=== PATIENT | female | born 1950 | race Caucasian/White ===

== ENCOUNTER → 2017-07-22 | Outpatient (CLI) | payer MEDICARE ==
--- NOTE | 2017-07-22 12:31 | KCIC ---
CT CHEST WO CONTRAST dated 07/22/2017 12:00 PM Indication: COPD, cough, shortness of air, smoker 50 years Comparison: None Technique: CT imaging was performed of the[chest], multiplanar reconstruction images submitted. One or more of the following individualized dose reduction techniques were utilized for this examination: 1. Automated exposure control 2. Adjustment of the mA and/or kV according to patient size 3. Use of iterative reconstruction technique. Findings: There is moderate centrilobular emphysema with upper zone predominance. There is no abnormal pericardial or pleural fluid, pneumothorax, or infiltrate. Major airways are patent. Thoracic aortic caliber is within normal limits, minimal plaque. No significantly enlarged lymph nodes are identified of the chest. There is mild coronary calcification. There is no significant abnormality of the limited visualized abdominal visceral organs. There is more prominent plaque of the visualized abdominal aorta. There are a couple of adjacent small nodules or nodes along the right major fissure axial image 38, largest 4 mm. There is a small noncalcified right lower lobe nodule on the order of 4 to 5 mm axial image 39 series 2. There is also a noncalcified nodule of the right middle lobe along the right minor fissure up to 7 mm axial images 38. There is a small 2 mm left lower lobe nodule axial image 50. IMPRESSION: 1. There is centrilobular emphysema with upper zone predominance. There are noncalcified, incidental pulmonary nodules as stated, largest 7 mm. As per the revised Fleischner guidelines, 3-6 month follow-up is recommended. Electronically signed by: Sami Garza MD (07/22/2017 12:28 PM) [id number]
--- NOTE | 2017-07-22 15:03 | RAD ---
DATE: 07/22/2017 EXAM: MAMMO ACMPOS SCREENING BILATERAL Bilateral digital screening mammography to include digital breast tomosynthesis (3D mammography) HISTORY: Screening study. COMPARISON: Comparison studies are dated 04/28/2012 and 04/05/2012 This study was interpreted with the benefit of Computerized Aided Detection (CAD). FINDINGS: Digital MLO and CC mammograms of both breasts were obtained. Additionally digital breast tomosynthesis (3D mammography) images of both breasts in the MLO and CC projections were performed. Comparison studies are dated 13/11 and 04/05/2012. The breast parenchyma is composed of scattered fibroglandular densities which can obscure a lesion on mammography (breast density code B). No spiculated mass is seen. No malignant appearing calcification or area of architectural distortion is noted. Benign-appearing calcifications are seen scattered throughout both breasts. Digital breast tomosynthesis images demonstrate no spiculated mass or malignant appearing calcification. Since the previous examination there has been no significant interval change. IMPRESSION: First category 1, negative. There is no mammographic evidence of malignancy. Routine yearly screening mammography is recommended for follow-up. BI-RADS CATEGORY: 1 NEGATIVE RECOMMENDED FOLLOW-UP: 12M 12 MONTH FOLLOW-UP PQRS compliance statement: Patient information was entered into a reminder system with a target due date 07/22/2018 for the next mammogram. Mammography is a sensitive method for finding small breast cancers, but it does not detect them all and is not a substitute for careful clinical examination. A negative mammogram does not negate a clinically suspicious finding and should not result in delay in biopsying a clinically suspicious abnormality. "Our facility is accredited by the [employer] Mammography [employer]."
== END | disposition home or self-care (01) ==
LOC: KCIC MAMMO 11:02
PROVIDERS: ATTEND Physician Assistant
DX: Z12.31 Encounter for screening mammogram for malignant neoplasm of breast (principal); J44.9 Chronic obstructive pulmonary disease, unspecified; Z72.0 Tobacco use
CPT/HCPCS: 71250; 77063; G0202; 77067

== ENCOUNTER → 2017-11-22 | Day surgery (SDC) | payer MEDICARE ==
[~2017-11-22] MED LIST: HYDROmorphone 2 MG/ML VIAL IV; LIDOCAINE 1% PF 2 ML VIAL. ID; LIDOCAINE 2% PF Vial for OR 5 ML VIAL.; MORPHINE SULFATE 2 MG/ML DISP.SYRIN. IV; ONDANSETRON PF 4 MG/2 ML VIAL. IV; PROCHLORPERAZINE 10 MG/2 ML VIAL. IV; PROPOFOL 20 ML IV; fentaNYL PF VIAL 100 MCG/2 ML VIAL IV
[2017-11-22] MEDS: IV RINGERS,LACTATED 1000ML 1,000 ML IV (07:54)
== END | disposition home or self-care (01) ==
LOC: ENDOS 07:14
DX: Z12.11 Encounter for screening for malignant neoplasm of colon (principal); Z80.0 Family history of malignant neoplasm of digestive organs; K64.0 First degree hemorrhoids; J44.9 Chronic obstructive pulmonary disease, unspecified; I10 Essential (primary) hypertension; K21.9 Gastro-esophageal reflux disease without esophagitis; Z82.49 Family history of ischemic heart disease and other diseases of the circulatory system; Z80.41 Family history of malignant neoplasm of ovary; F17.200 Nicotine dependence, unspecified, uncomplicated; Z72.89 Other problems related to lifestyle; Z90.49 Acquired absence of other specified parts of digestive tract; Z90.710 Acquired absence of both cervix and uterus; Z98.51 Tubal ligation status; Z80.3 Family history of malignant neoplasm of breast; Z86.010 Personal history of colon polyps
CPT/HCPCS: G0105; J2704

== ENCOUNTER → 2019-08-18 | Outpatient (CLI) | payer MEDICARE ==
[2017-11-22 09:40] VITALS: BP 147/68
[~2019-08-18] MED LIST changes: +ALBU2.5V8 IH; +FLUT1DIS IH; -HYDROmorphone 2 MG/ML VIAL IV; -LIDOCAINE 1% PF 2 ML VIAL. ID; -LIDOCAINE 2% PF Vial for OR 5 ML VIAL.; +LISI10TA2 PO; +LORA1TAB PO; -MORPHINE SULFATE 2 MG/ML DISP.SYRIN. IV; -ONDANSETRON PF 4 MG/2 ML VIAL. IV; -PROCHLORPERAZINE 10 MG/2 ML VIAL. IV; -PROPOFOL 20 ML IV; -fentaNYL PF VIAL 100 MCG/2 ML VIAL IV
--- NOTE | 2019-08-18 15:45 | KCIC ---
Bilateral digital screening mammograms with 3-D tomosynthesis: Reason for examination: Routine screening. Comparison is made to previous studies dated 07/22/2017 and 04/05/2012. Bilateral mammograms in CC and oblique projections were obtained with 2-D imaging and 3-D tomosynthesis imaging on a Siemens Inspiration unit and reviewed on the workstation. Interpretation was made with the benefit of CAD. The skin and nipples show no abnormalities. No abnormal axillary lymph nodes are seen. The breast parenchyma shows scattered fatty and fibroglandular density. (Breast density: Category B.) There continue to be small nodular densities at the 12:00 B position of the right breast and 9:00 B position of the left breast which are stable. There are no new dominant masses, suspicious calcifications or architectural distortion. Benign calcifications are present. Impression: No evidence of malignancy. Recommend routine screening. BI-RAD Category 2: Benign. "Our facility is accredited by the [employer] Mammography Program." This patient's information has been entered into a reminder system for the patient to be notified with the results of her examination and a target date for the next mammogram. Electronically signed by: Martha Pacheco MD (08/18/2019 3:42 PM) [id number]
== END | disposition home or self-care (01) ==
LOC: KCIC MAMMO 09:30
PROVIDERS: ATTEND Family Medicine
DX: Z12.31 Encounter for screening mammogram for malignant neoplasm of breast (principal); N64.89 Other specified disorders of breast
CPT/HCPCS: 77063; 77067

== ENCOUNTER → 2019-08-21 | Outpatient (CLI) | payer MEDICARE ==
[2017-11-22 09:40] VITALS: BP 147/68
[~2019-08-21] MED LIST changes: -ALBU2.5V8 IH; +PROVENTIL HFA6.7 GM IH
--- NOTE | 2019-08-21 15:59 | KCIC ---
EXAM: Chest CT without intravenous contrast. HISTORY: Pulmonary nodule follow-up. TECHNIQUE: Computed tomographic images of the chest were obtained without contrast. Multiplanar reformatting was performed. *One or more of the following individualized dose reduction techniques were utilized for this examination: 1. Automated exposure control. 2. Adjustment of the mA and/or kV according to patient size. 3. Use of iterative reconstruction technique. COMPARISON: 07/22/2017. FINDINGS: There is no infiltrate, pleural effusion or pneumothorax. There is mild upper lobe predominant pulmonary emphysema. There are a few noncalcified pulmonary nodules, the largest of which measures 7 mm in the right middle lobe along the pleural fissure and may be a fissural lymph node. There are few additional suspected lymph nodes along the right major fissure, the largest of which measure 5 mm and 6 mm. There are additional parenchymal nodules, the largest of which measures 5 mm within the right lower lobe and 4 mm within the left lower lobe. The heart is normal in size. The aorta is normal in caliber. There is no lymphadenopathy. There is stable heterogeneous density of the vertebral bodies and sternum. There is a superimposed bone island within L1. IMPRESSION: 1. Multiple noncalcified subcentimeter pulmonary nodules, the largest of which measures 7 mm along the right minor fissure and is likely a fissural lymph node. These are stable to minimally increased in size compared to the study dated 07/22/2017. This favors benignity. Continued follow-up can be performed according to Fleischner Society criteria. 2. Stable heterogeneous density vertebral bodies and sternum. The interval stability favors benignity. Fleischner Society recommendations (Radiology 2017): SOLID NODULES Solitary solid nodule <6 mm - low-risk patient: no routine follow-up required - high-risk patient: optional CT at 12 months (particularly with suspicious nodule morphology and/or upper lobe location) Solitary solid nodule 6-8 mm - low-risk patient: CT at 6-12 months, then consider CT at 18-24 months - high risk patient: CT at 6-12 months, then if persistent CT at 18-24 months Solitary solid nodule >8 mm - consider CT at 3 months, PET/CT, or tissue sampling Multiple solid nodules <6 mm - low-risk patient: no routine follow-up required - high-risk patient: optional CT at 12 months Multiple solid nodules >6 mm - low-risk patient: CT at 3-6 months, then consider CT at 18-24 months - high risk patient: CT at 3-6 months, then if persistent CT at 18-24 months SUBSOLID NODULES Solitary ground glass nodule <6 mm - no routine follow-up required Solitary ground glass nodule > or = 6 mm - CT at 6-12 months, then if persistent CT every 2 years until 5 years Solitary part solid nodule > or = 6mm - CT at 3-4 months, the if persistent and solid component remains <6 mm, annual CT until 5 years Multiple subsolid nodules <6 mm - CT at 3-6 months, then if stable consider CT at 2 and 4 years in high risk patients Multiple subsolid nodules > or = 6 mm - CT at 3-6 months, then subsequent management based on the most suspicious nodule(s) Electronically signed by: Ginna Howell MD (08/21/2019 3:55 PM) [facility]
== END | disposition home or self-care (01) ==
LOC: KCIC CT 09:43
PROVIDERS: ATTEND Family Medicine
DX: Z09 Encounter for follow-up examination after completed treatment for conditions other than malignant neoplasm (principal); J43.8 Other emphysema; R91.8 Other nonspecific abnormal finding of lung field
CPT/HCPCS: 71250

== ENCOUNTER → 2021-09-07 | Outpatient (CLI) | payer MEDICARE ==
[2017-11-22 09:40] VITALS: BP 147/68
[~2021-09-07] MED LIST changes: +LISI10TA16 PO; -LISI10TA2 PO
--- NOTE | 2021-09-07 15:52 | KCIC ---
EXAM: Chest CT without intravenous contrast. HISTORY: Pulmonary nodule follow-up. TECHNIQUE: Computed tomographic images of the chest were obtained without contrast. Multiplanar refor matting was performed. *One or more of the following individualized dose reduction techniques were utilized for this examina tion: 1. Automated exposure control. 2. Adjustment of the mA and/or kV according to patient size. 3. Use of iterative reconstruction technique. COMPARISON: 08/21/2019. FINDINGS: The heart is normal in size. There is calcified atherosclerotic plaque involving the aorta and coronary arteries. No pathologically enlarged lymph node is seen. There is no pneumothorax or ple ural effusion. There is moderate emphysema with biapical predominant pleural parenchymal scarring. There is a 6 mm nodule within the lateral right lower lobe (series 6, image 137). There is a 7 mm nod ule along the right greater fissure (series 6, image 133), likely a fissural lymph node. There is a 3 mm groundglass nodule within the anterior right lower lobe (series 6, image 148). There are adjacent 5 mm nodules within the right major fissure (series 6, image 130), likely fissural lymph nodes. Ther e is a 4 mm nodule within the lateral left lower lobe (series 6, image 160). There is a 4 mm groundgl ass nodular opacity within the anterior left upper lobe (series 6, image 89). There are a few tiny 2 mm solid and groundglass nodules within the bilateral lung apices. There is no acute finding involving the upper abdomen. There is no suspicious osseous finding. There is thoracic kyphoscoliosis. There is bone demineralization. There is a bone island within the upper l umbar spine., IMPRESSION: 1. Multiple pulmonary nodules, the largest which measures 7 mm along the right minor fissure and is l ikely a fissural lymph node. These are not significantly changed compared to the study performed 08/21. Given the two-year course of stability, continued follow-up in 12 month interval is recommende d. 2. Emphysema. Electronically signed by: Ginna Howell MD (09/07/2021 3:50 PM) [facility]
== END ==
LOC: KCIC CT 12:22
PROVIDERS: ATTEND Family Medicine
DX: R91.8 Other nonspecific abnormal finding of lung field (principal); J43.9 Emphysema, unspecified; J98.4 Other disorders of lung; I25.10 Atherosclerotic heart disease of native coronary artery without angina pectoris; I70.0 Atherosclerosis of aorta; M41.84 Other forms of scoliosis, thoracic region
CPT/HCPCS: 71250

== ENCOUNTER → 2022-03-07 | Outpatient (CLI) | payer MEDICARE ==
[2017-11-22 09:40] VITALS: BP 147/68
--- NOTE | 2022-03-07 14:18 | RAD ---
XR CHEST 2V History: COPD, covid positive, short of air. Comparison: CT chest 09/07/2021. Technique: PA and lateral chest radiographs. Findings: The lungs are hyperinflated. No focal airspace consolidation, pleural effusion or pneumothorax. Heart size and pulmonary vasculature are within normal limits. No acute osseous abnormality. Soft tissues are unremarkable. Impression: 1. No acute cardiopulmonary process. Electronically signed by: Lewis Betancourt MD (03/07/2022 2:16 PM) [id number]
== END ==
LOC: RAD 10:22
PROVIDERS: ATTEND Physician Assistant
DX: U07.1 COVID-19 (principal); J98.11 Atelectasis
CPT/HCPCS: 71046